=== PATIENT | male | born 1985 | race Caucasian/White ===

== ENCOUNTER → 2019-05-18 | Emergency (ER) | payer BC ==
[~2019-05-18] VITALS: Ht 180.3 cm; Wt 121.8 kg
[~2019-05-18] MED LIST: BACTRIM DS 8001 TAB PO; XARELTO10 MG PO; ZYLOPRIM 300MG300 MG PO
[2019-05-18 20:47] VITALS: BP 131/73; TEMP 98.3
[2019-05-18 21:42] LABS: BASO % 0.4 % (0.0-2.0); EOS # 0.2 (0.0-0.7); EOS % 2.7 % (0-4.0); GRAN # 5.9 (1.4-6.5); GRAN % 76.6 % (42.2-75.2); HEMATOCRIT 42.9 % (42.0-52.0); HEMOGLOBIN 14.2 g/dl (13.5-18.0); LYMPH % 12.4 % (20.0-51.0); MEAN CELL VOLUME 92 fl (80.0-100.0); MEAN CORPUSCULAR HEMOGLOBIN 31 pg (27.0-31.0); MEAN CORPUSCULAR HGB CONC 33 g/dl (33.0-37.0); MEAN PLATELET VOLUME 9.3 fl (7.4-10.4); MONO # 0.6 (0.1-0.6); MONO % 7.6 % (1.7-9.3); PLATELET COUNT 282 K/mm3 (130-400); RED BLOOD COUNT 4.66 M/mm3 (4.20-5.60); REDCELL DISTRIBUTION WIDTH-CV 13.1 % (11.5-14.5)
[2019-05-18 21:54] LABS: ALBUMIN 4.3 gm/dL (3.5-5.0); BILIRUBIN,TOTAL 0.5 mg/dL (0.0-1.0); CALCIUM 8.7 mg/dL (8.4-10.2); CREATININE, serum 0.96 (0.66-1.25); POTASSIUM 3.8 mmol/L (3.4-5.0); TOTAL PROTEIN 7.7 gm/dL (6.4-8.2)
[2019-05-18 22:00] LABS: INR 1.7 (0.8-3.0); PROTHROMBIN TIME 19.9 SECONDS (9.7-12.8)
[2019-05-18 22:03] LABS: PARTIAL THROMBOPLASTIN TIME 45.1 SECONDS (26.0-37.0)
[2019-05-19 00:13] VITALS: PULSE 82
== END ==
LOC: COL.ER 20:43
PROVIDERS: Emergency Medicine
DX: I82.621 Acute embolism and thrombosis of deep veins of right upper extremity (principal)
CPT/HCPCS: J1644; J7030

== ENCOUNTER → 2019-05-18 | Outpatient (CLI) | payer BC | LOC: COL.VAS 12:06 | DX: I82.611 Acute embolism and thrombosis of superficial veins of right upper extremity (principal); I82.890 Acute embolism and thrombosis of other specified veins ==

== ENCOUNTER → 2019-06-12 | Outpatient (CLI) | payer BC | LOC: COL.VAS 12:36 | DX: Z13.6 Encounter for screening for cardiovascular disorders (principal); I82.621 Acute embolism and thrombosis of deep veins of right upper extremity ==